=== PATIENT | female | born 1970 | race Caucasian/White ===

== ENCOUNTER 2016-11-05 10:06 | Emergency (ER) | payer OTHER ==
[~2016-11-05] VITALS: Ht 160 cm; Wt 135.2 kg
[~2016-11-05 10:06] MED LIST: FLEXERIL10 MG PO; PREDNISONE10 MG PO; ROBAXIN500 MG PO; TRAMADOL HCL50 MG PO
[2016-11-05 11:57] LABS: HEMATOCRIT 38.6 % (36.0-46.0); MCH 29.7 PG (29.0-34.0); MCHC 34.2 G/DL (30.0-36.0); MCV 86.7 FL (83-99); MEAN PLAT.VOLUME 8.8 uM^3 (9.5-12.4); PLATELET COUNT 304 K/uL (156-360); RBC DIS.WIDTH-CV 12.7 % (11.8-14.6); RED BLOOD COUNT 4.45 M/uL (3.80-5.20); WHITE BLOOD COUNT 8.7 K/uL (4.1-10.2)
[2016-11-05 12:11] LABS: CHLORIDE 102 mEq/L (99-109); POTASSIUM 3.9 mEq/L (3.7-5.4); SODIUM 139 mEq/L (136-147)
[2016-11-05 12:13] LABS: GLUCOSE 108 mg/dL (70-99)
[2016-11-05 12:15] LABS: ANION GAP 5 MEQ/L (2-14); TOTAL BILIRUBIN 0.5 mg/dL (0.0-1.0)
[2016-11-05 12:17] LABS: ALKALINE PHOSPHATASE 82 IU/L (3-129); GFR ESTIMATE (CALCULATED) > 59 mL/min/
[2016-11-05 12:18] LABS: TROP-I INTERPRETATION NEGATIVE; TROPONIN-I < 0.01 ng/mL (0.0-0.30); UREA NITROGEN (BUN) 13 mg/dL (9-23)
[2016-11-05 12:20] LABS: LIPASE 19 U/L (1.0-51.0)
[2016-11-05 12:26] LABS: QUANTITATIVE HCG < 4.0 MIU/ML
[2016-11-05 12:55] LABS: ADD MIUA? YES; BILIRUBIN SMALL; BLOOD NEGATIVE; COLOR DK YELLOW ((YELLOW)); GLUCOSE (STRIP) NEGATIVE; KETONES TRACE; LEUKOCYTES NEGATIVE; NITRITE POSITIVE; PH, URINE 5.5 (5-8); PROTEIN (STRIP) TRACE; SPECIFIC GRAVITY 1.039 (1.000-1.030); UROBILINOGEN 0.2 MG/DL (0.2-1.0)
[2016-11-05 13:20] LABS: EPITHELIAL CELLS RARE; RED BLOOD CELLS NONE SEEN /HPF (0-5); WHITE BLOOD CELLS NONE SEEN /HPF (0-5)
[2016-11-05 13:21] LABS: BACTERIA 2+; CASTS NONE SEEN /LPF; MUCUS 2+; UCUL ADDED? NO
[2016-11-05 13:22] LABS: CALCIUM OXALATE CRYSTALS FEW; CRYSTALS PRESENT
[2016-11-05] MEDS ORDERED: MUCINEX FAST-M1 EAC2 PO (14:48)
[2016-11-05] MEDS ORDERED: KEFLEX500 MG PO (14:48)
[2016-11-05 15:22] LABS: TROP-I INTERPRETATION NEGATIVE; TROPONIN-I < 0.01 ng/mL (0.0-0.30)
[2016-11-05 15:47] VITALS: BP 144/84
== END 2016-11-05 15:50 | disposition home or self-care (01) ==
LOC: EME 10:06
PROVIDERS: Nurse Practitioner Family
DX: N39.0 Urinary tract infection, site not specified (principal); J32.9 Chronic sinusitis, unspecified; R05 Cough; R07.89 Other chest pain; I25.2 Old myocardial infarction
CPT/HCPCS: 71020; 80053; 81003; 83690; 84484; 84702; 85027; 93005; 94640; 99281; 99284; J7512

== ENCOUNTER 2016-12-18 17:04 | Emergency (ER) | payer OTHER ==
[~2016-12-18] VITALS: Ht 162.6 cm; Wt 132.5 kg
[~2016-12-18 17:04] MED LIST changes: +KEFLEX500 MG PO; +MUCINEX FAST-M1 EAC2 PO
[2016-12-18] MEDS ORDERED: FLEXERIL10 MG PO (19:06)
[2016-12-18] MEDS ORDERED: MOTRIN800 MG PO (19:06)
[2016-12-18 19:27] VITALS: BP 150/87
== END 2016-12-18 19:28 | disposition home or self-care (01) ==
LOC: EME 17:04
DX: S59.912A Unspecified injury of left forearm, initial encounter (principal); X50.0XXA Overexertion from strenuous movement or load, initial encounter
CPT/HCPCS: 99281; 99284

== ENCOUNTER 2017-09-27 20:08 | Emergency (ER) | payer SELFPAY ==
[~2017-09-27] VITALS: Ht 160 cm; Wt 139.6 kg
[~2017-09-27 20:08] MED LIST changes: +MOTRIN800 MG PO
[2017-09-27 21:01] LABS: HEMATOCRIT 39.3 % (36.0-46.0); MCH 30.4 PG (29.0-34.0); MCHC 35.1 G/DL (30.0-36.0); MCV 86.6 FL (83-99); MEAN PLAT.VOLUME 9.1 uM^3 (9.5-12.4); PLATELET COUNT 319 K/uL (156-360); RBC DIS.WIDTH-CV 12.8 % (11.8-14.6); RBC DIS.WIDTH-SD 40.3 % (39-53); RED BLOOD COUNT 4.54 M/uL (3.80-5.20); WHITE BLOOD COUNT 7.7 K/uL (4.1-10.2)
[2017-09-27 21:11] LABS: CHLORIDE 105 mEq/L (99-109); POTASSIUM 3.8 mEq/L (3.7-5.4); SODIUM 139 mEq/L (136-147)
[2017-09-27 21:13] LABS: GLUCOSE 110 mg/dL (70-99)
[2017-09-27 21:14] LABS: ANION GAP 12 MEQ/L (2-14)
[2017-09-27 21:17] LABS: GFR ESTIMATE (CALCULATED) > 59 mL/min/
[2017-09-27 21:18] LABS: UREA NITROGEN (BUN) 13 mg/dL (9-23)
[2017-09-27 21:24] LABS: TROP-I INTERPRETATION NEGATIVE; TROPONIN-I < 0.01 ng/mL (0.0-0.30)
[2017-09-27 22:01] VITALS: BP 122/79
== END 2017-09-27 22:03 | disposition home or self-care (01) ==
LOC: EME 20:08
DX: R06.02 Shortness of breath (principal); R07.9 Chest pain, unspecified; F41.0 Panic disorder [episodic paroxysmal anxiety]; F17.210 Nicotine dependence, cigarettes, uncomplicated; I25.2 Old myocardial infarction
CPT/HCPCS: 71020; 80048; 83880; 84484; 85027; 93005; 99281; 99284